=== PATIENT | male | born 1990 | race Caucasian/White ===

== ENCOUNTER 2017-05-02 21:42 | Emergency (ER) | payer SELFPAY ==
[2017-05-02 21:58] VITALS: BP 140/85
[2017-05-02] MEDS ORDERED: Belladonna-Phenobarbital PO STA (22:19)
[2017-05-02] MEDS ORDERED: Sodium Chloride 0.9% 1,000 ML IV ONE (22:19)
--- NOTE | 2017-05-02 22:19 | C.PDOC ---
History Of Present Illness 26 y/o male presents to ED with c/o fever, body aches, abdominal cramps, and diarrhea for 3 days. Denies vomiting, bloody stools, nausea, chest pain, SOB, or other associated symptoms. Chief Complaint (Nursing): Fever History Per: Patient History/Exam Limitations: no limitations Onset/Duration Of Symptoms: Days Current Symptoms Are (Timing): Still Present Location Of Pain: Throat, Diffuse Myalgias, Headache Sick Contacts (Context): Family Member(s) Associated Symptoms: Fever, Sore Throat, Myalgias, Diarrhea. denies: Chills, Neck Pain, Vomiting Ear Symptoms: Bilateral: None Recent travel outside of the [place]: No Past Medical History Reviewed: Historical Data, Nursing Documentation, Vital Signs Vital Signs: Last Vital Signs Temp 99.8 F H 05/02/17 23:26 Pulse 107 H 05/02/17 23:26 Resp 20 05/02/17 23:26 BP 140/85 05/02/17 21:55 Pulse Ox 98 05/02/17 23:26 - Medical History PMH: Migraine Family History: States: Unknown Family Hx - Social History Hx Tobacco Use: No Hx Alcohol Use: Yes Hx Substance Use: No - Immunization History Hx Tetanus Toxoid Vaccination: No Hx Influenza Vaccination: No Hx Pneumococcal Vaccination: No Review Of Systems Except As Marked, All Systems Reviewed And Found Negative. Constitutional: Positive for: Fever, Malaise ENT: Positive for: Throat Pain Cardiovascular: Negative for: Chest Pain Respiratory: Negative for: Cough, Shortness of Breath Gastrointestinal: Positive for: Abdominal Pain, Diarrhea. Negative for: Vomiting Skin: Negative for: Rash Neurological: Negative for: Dizziness Physical Exam - Physical Exam Appears: Non-toxic, No Acute Distress Skin: Normal Color, Warm, Dry Head: Atraumatic, Normacephalic Eye(s): bilateral: Normal Inspection, PERRL, EOMI Ear(s): Bilateral: Normal Oral Mucosa: Moist Throat: Normal, No Erythema, No Exudate Chest: Symmetrical Cardiovascular: Rhythm Regular (tachycardic), No Murmur Respiratory: Normal Breath Sounds, No Rales, No Rhonchi, No Wheezing Gastrointestinal/Abdominal: Soft, Tenderness (epigastric), No Guarding, No Rebound Back: Normal Inspection Extremity: Normal ROM, Capillary Refill (< 2 sec.) Extremity: Bilateral: Normal Color And Temperature Neurological/Psych: Oriented x3, Normal Speech, Normal Cognition ED Course And Treatment - Laboratory Results Result Diagrams: 05/02/17 22:41 05/02/17 23:00 O2 Sat by Pulse Oximetry: 96 (RA) Pulse Ox Interpretation: Normal Progress Note: , Pepcid, IVFs, Labs ordered and reviewed. On reeval pt is comfortable, no longer in pain, abdomen soft and nontender. VSS, pt AAO x3 agrees with plan and understands return precautions Reevaluation Time: 23:38 Reassessment Condition: Improved Disposition - Disposition Disposition: HOME/ ROUTINE Disposition Time: 23:39 Condition: STABLE Additional Instructions: Increase PO fluids Take meds as directed Follow up with PMD Return to ER if worse Prescriptions: Phenobarb/Hyoscy/Atropine/Scop [ Tablet] 16.2 mg PO TID #10 tablet Instructions: Gastroenteritis (ED) - Clinical Impression Clinical Impression: Gastroenteritis - PA / IT LEAD / Resident Statement MD/DO has reviewed & agrees with the documentation as recorded. - Scribe Statement The provider has reviewed the documentation as recorded by the Scribirene Dawn All medical record entries made by the Dalton were at my direction and personally dictated by me. I have reviewed the chart and agree that the record accurately reflects my personal performance of the history, physical exam, medical decision making, and the department course for this patient. I have also personally directed, reviewed, and agree with the discharge instructions and disposition.
[2017-05-02] MEDS ORDERED: Belladonna-Phenobarbital ONE (22:32)
[2017-05-02] MEDS ORDERED: Sodium Chloride 0.9% 1,000 ML ONE (22:33)
[2017-05-02 22:44] LABS: BASO # 0.1 K/uL (0.0-0.2); BASO % 0.6 % (0.0-2.0); EOS % 0.5 % (0.0-4.0); HEMATOCRIT 45.2 % (35.0-51.0); LYMPH # 1.1 K/uL (1.0-4.3); LYMPH % 13.1 % (20.0-40.0); MEAN CORPUSCULAR HEMOGLOBIN 30.2 pg (27.0-31.0); MEAN CORPUSCULAR HGB CONC 34.3 g/dL (33.0-37.0); MEAN PLATELET VOLUME 9.1 fL (7.2-11.7); MONO # 0.7 K/uL (0.0-0.8); MONO % 7.9 % (0.0-10.0); NRBC % 0.1 % (0.0-2.0); RED CELL DISTRIBUTION WIDTH 13.5 % (11.5-14.5); WHITE BLOOD COUNT 8.7 K/uL (4.8-10.8)
[2017-05-02 23:19] LABS: CHLORIDE 98 mmol/L (98-107); SODIUM 139 mmol/L (132-148)
[2017-05-02 23:20] LABS: POTASSIUM 3.8 mmol/L (3.6-5.2)
[2017-05-02 23:21] LABS: GFR AFRICAN-AMERICAN > 60
[2017-05-02 23:22] LABS: ALB/GLOB RATIO 1.2 (1.0-2.1); ALKALINE PHOSPHATASE 75 U/L (38-126); ALT/SGPT 39 U/L (21-72); AST/SGOT 27 U/L (17-59); BILIRUBIN,TOTAL 0.5 mg/dL (0.2-1.3); BLOOD UREA NITROGEN 14 mg/dL (9-20); CARBON DIOXIDE 25 mmol/L (22-30); GLUCOSE,RANDOM 110 mg/dL (75-110); TOTAL PROTEIN 7.1 g/dL (6.3-8.3)
[2017-05-02 23:23] LABS: CALCIUM 8.4 mg/dl (8.6-10.4)
[2017-05-02 23:27] VITALS: PULSE 107; RESP 20; TEMP 99.8
[2017-05-02 23:40] VITALS: O2SAT 96
== END 2017-05-02 23:54 | disposition home or self-care (01) ==
LOC: C.ER 21:42
DX: K52.9 Noninfective gastroenteritis and colitis, unspecified (principal)
CPT/HCPCS: 80053; 83690; 85025; 96361; 96374; 99283; J7040

== ENCOUNTER 2018-01-25 21:43 | Emergency (ER) | payer SELFPAY ==
[2018-01-25 22:05] VITALS: PULSE 80; RESP 14; O2SAT 99
--- NOTE | 2018-01-25 22:35 | C.PDOC ---
History Of Present Illness 27 year old male presents to the ER with a complaint of a frontal headache, periorbital pain, and eye discomfort for the past 3-4 days. Denies eye redness, eye pain, eye discharge, head injury, nausea, vomiting, or photophobia. Time Seen by Provider: 01/25/18 22:08 Chief Complaint (Nursing): Eye Problem History Per: Patient History/Exam Limitations: no limitations Onset/Duration Of Symptoms: Days Current Symptoms Are (Timing): Still Present Wears Contact Lens?: No Associated Symptoms: Other (Discomfort) Recent travel outside of the [place]: No Past Medical History Reviewed: Historical Data, Nursing Documentation, Vital Signs Vital Signs: Last Vital Signs Temp 97.8 F 01/25/18 22:48 Pulse 80 01/25/18 22:48 Resp 14 01/25/18 22:48 BP 124/79 01/25/18 22:48 Pulse Ox 99 01/26/18 00:04 - Medical History PMH: Migraine Family History: States: Unknown Family Hx - Social History Hx Tobacco Use: No Hx Alcohol Use: Yes Hx Substance Use: No - Immunization History Hx Tetanus Toxoid Vaccination: No Hx Influenza Vaccination: No Hx Pneumococcal Vaccination: No Review Of Systems Eyes: Positive for: Other (eye discomfort) Gastrointestinal: Negative for: Nausea, Vomiting Neurological: Positive for: Headache. Negative for: Other (Photophobia) Physical Exam - Physical Exam Appears: Non-toxic, No Acute Distress Skin: Normal Color, Warm, Dry Head: Atraumatic, Normacephalic, No Tenderness (Sinus) Eye(s): bilateral: Normal Inspection (Visual acuity 20/20), PERRL, EOMI Neck: Normal, No Midline Cervical Tenderness, No Paracervical Tenderness, Supple Neurological/Psych: Oriented x3, Normal Speech, Normal Cranial Nerves, Normal Motor, Normal Sensation ED Course And Treatment O2 Sat by Pulse Oximetry: 99 (Room air) Pulse Ox Interpretation: Normal Progress Note: Motrin administered. Patient reports improvment of pain, he is resting comfortably in the ER in no acute distress, will discharge home with instructions to follow up with PMD or return if symptoms worsen. Disposition Counseled Patient/Family Regarding: Diagnosis, Need For Followup, Rx Given - Disposition Referrals: [facility] [Outside] Trenton Chong [Staff Provider] - Disposition: HOME/ ROUTINE Disposition Time: 22:36 Condition: STABLE Additional Instructions: Please follow up with PMD Need eye exam - make appointment Take meds as directed Return to ER if worse Prescriptions: Cetirizine HCl [Zyrtec] 10 mg PO DAILY #20 capsule Ibuprofen [Motrin] 600 mg PO Q6H #20 tab Instructions: Migraine Headache (DC) Forms: [employer] (Romansh) - Clinical Impression Clinical Impression: Migraine headache - PA / IT SYSTEMS ANALYST / Resident Statement MD/DO has reviewed & agrees with the documentation as recorded. - Scribe Statement The provider has reviewed the documentation as recorded by the Scribe Jonathon Urena All medical record entries made by the Zariibirene were at my direction and personally dictated by me. I have reviewed the chart and agree that the record accurately reflects my personal performance of the history, physical exam, medical decision making, and the department course for this patient. I have also personally directed, reviewed, and agree with the discharge instructions and disposition.
[2018-01-25 22:50] VITALS: BP 124/79; TEMP 97.8
== END 2018-01-25 22:50 | disposition home or self-care (01) ==
LOC: C.ER 21:43
DX: G43.909 Migraine, unspecified, not intractable, without status migrainosus (principal)